=== PATIENT | male | born 1960 | race Caucasian/White ===

== ENCOUNTER 2021-09-12 01:10 | Day surgery (SDC) | payer OTHER, SELFPAY ==
[2021-09-02 15:11] VITALS: BMI 32.5
[2021-09-12 06:34] VITALS: BP 123/82; PULSE 79; RESP 16; TEMP 35.7; O2SAT 98
[2021-09-12] MEDS: LACTATED RINGERS 1,000 ML 150 ML IV CONT (06:44)
--- NOTE | 2021-09-12 07:13 | P.PNAN_ITS ---
Anes - Initial Pre Proc Eval Procedure: Operation Date: 09/12/21 07:30 Proposed Procedures p Screening Colonoscopy - Hemant Calvillo MD Date/Time: 09/12/21 07:13 Surgeon: Hemant Calvillo MD Pre Op Diagnosis: neoplasm screening Patient Data Age: 61 Gender: M Height: 1.75 m Weight: 96.1 kg Last Vital Signs Temp 96.3 F L 09/12/21 06:34 Pulse 79 09/12/21 06:34 Resp 16 09/12/21 06:34 BP 123/82 09/12/21 06:34 Pulse Ox 98 09/12/21 06:34 Allergies Allergy/AdvReac Type Severity Reaction Status Date / Time ciprofloxacin Allergy Migraine Verified 09/12/21 06:31 Home Medications Medication Instructions Recorded Confirmed Type dutasteride-tamsulosin 1 cap PO DAILY 09/02/21 09/12/21 History omeprazole 20 mg PO DAILY PRN 09/02/21 09/12/21 History Patient hx anesthesia problems: none Family hx anesthesia problems: none Results Review: All pre-operative results and documents have been reviewed as part of the pre-operative evaluation. PMF Social History Social History Smokeless tobacco user: snuff Alcohol intake: current Alcohol use details: 4 PER MONTH Living arrangements: with family Spiritual care concerns: No Anes - Eval Final PreProcedure Day of Procedure 09/12/21 07:13 Patient weight: obese Heart: regular rate and rhythm Lungs: clear to auscultation Airway: Mallampati scale Last oral intake: >/= 8 hours ASA classification: II Emergent: no Anesthetic plan: proceed Anesthesia type and monitoring: general GIVS and standard monitoring Results Review: All pre-operative results and documents have been reviewed as part of the pre-operative evaluation. Informed Consent: The patient's anesthetic plan and its attendant risks and be nefits were discussed with the patient/family/POA. Questions were solicited and answers provided to the satisfaction of the patient/family/POA.
--- NOTE | 2021-09-12 07:17 | PM.HPGS ---
History of Present Illness History of Present Illness Consent: Risks, benefits, and alternatives have been discussed and questions answered. Patient agrees to proceed with procedure. Chief complaint: neoplasm screening Narrative: Sreekanth De Leon is a 61 year old male here for first screening colonoscopy Review of Systems Constitutional: Constitutional: Denies headache(s) and Denies weakness Eyes: Eyes: Denies blurry vision ENT: Reports Normal hearing present, Denies headache(s) and Denies neck pain Cardiovascular: Cardiovascular: Denies chest pain and Denies dyspnea Respiratory: Respiratory: Denies dyspnea Gastrointestinal: Gastrointestinal: Reports no additional gastrointestinal complaints Genitourinary: Genitourinary: Denies dysuria Musculoskeletal: Musculoskeletal: Denies neck pain Integumentary/Breasts: Skin/Breast: Denies dry skin Neurologic: Reports Normal hearing present, Denies headache(s) and Denies weakness Psychiatric: Psychiatric: Denies anxiety Endocrine: Endocrine: Denies change in body appearance Hematologic/Lymphatic: Hematologic/Lymphatic: Denies easy bleeding Allergic/Immunologic: Allergic/Immunologic: Denies urticaria PMF Past Medical History Medical History (Updated 09/12/21 @ 07:18 by Hemant Calvillo MD) Colon cancer screening Social History Social History Smokeless tobacco user: snuff Alcohol intake: current Alcohol use details: 4 PER MONTH Living arrangements: with family Spiritual care concerns: No Meds Home Medications and Allergies Home Medications Medication Instructions Recorded Confirmed Type dutasteride-tamsulosin 1 cap PO DAILY 09/02/21 09/12/21 History omeprazole 20 mg PO DAILY PRN 09/02/21 09/12/21 History Allergies Allergy/AdvReac Type Severity Reaction Status Date / Time ciprofloxacin Allergy Migraine Verified 09/12/21 06:31 Vital Signs Vital Signs - 24 hr 09/12/21 06:34 Temperature 96.3 F L Pulse Rate 79 Respiratory Rate 16 Blood Pressure 123/82 Pulse Oximetry 98 Exam Const: General: comfortable and no acute distress HENMT: General nose exam: Normal nares present Eyes: General: appearance normal, both eyes and all related structures Neck: Neck: no JVD Resp: Auscultation: clear to auscultation bilaterally Cardio: Rate: regular rate Rhythm: regular rhythm GI: Inspection: non-distended GI Palp: Yes Soft to palpation Skin: General skin exam: normal color Neuro: General: gait normal Speech: normal speech Extrem: General: normal to inspection Psych: Mental Status: mental status grossly normal Assessment and Plan Assessment and plan (1) Colon cancer screening: Code(s): Z12.11 - Encounter for screening for malignant neoplasm of colon Status: Acute Assessment and Plan: colonoscopy
[2021-09-12 07:49] VITALS: BP 107/71; PULSE 62; RESP 18; O2SAT 96
[2021-09-12 07:59] VITALS: BP 111/76; PULSE 64; RESP 20; O2SAT 96
[2021-09-12 08:09] VITALS: BP 122/93; PULSE 66; RESP 22; O2SAT 98
== END 2021-09-12 08:20 | disposition home or self-care (01) ==
PROVIDERS: Visit Provider Internal Medicine Gastroenterology
PROC: 0DJD8ZZ Inspection of Lower Intestinal Tract, Via Natural or Artificial Opening Endoscopic (ICD-10-PCS; CPT 45378; principal; 2021-09-12 07:30)
DX: Z12.11 Encounter for screening for malignant neoplasm of colon (principal); K63.5 Polyp of colon; K64.8 Other hemorrhoids; E66.9 Obesity, unspecified; Z68.31 Body mass index [BMI] 31.0-31.9, adult
CPT/HCPCS: 45385; 88305; J2704; J7120